=== PATIENT | female | born 1935 | race Caucasian/White ===

== ENCOUNTER 2016-07-01 14:39 | Emergency (ER) | payer OTHER ==
[~2016-07-01] VITALS: Ht 162.6 cm; Wt 68.5 kg
[~2016-07-01 14:39] MED LIST: CLONAZEPAM0.5 MG PO; CRESTOR40 MG PO; DORZOLAMIDE-TIM10 ML BOTH EYES; DULCOLAX5 MG PO; LATANOPROST2.5 ML BOTH EYES; LOSARTAN POTASS25 MG PO; PREDNISONE10 MG PO; TRAMADOL HCL50 MG PO
[2016-07-01 15:50] VITALS: BP 166/108
== END 2016-07-01 15:51 | disposition home or self-care (01) ==
LOC: EME 14:39
DX: S71.111D Laceration without foreign body, right thigh, subsequent encounter (principal); L08.9 Local infection of the skin and subcutaneous tissue, unspecified; W06.XXXD Fall from bed, subsequent encounter; Y92.003 Bedroom of unspecified non-institutional (private) residence as the place of occurrence of the external cause; I10 Essential (primary) hypertension; Z79.52 Long term (current) use of systemic steroids
CPT/HCPCS: 99281; 99284

== ENCOUNTER 2017-02-23 10:10 | Emergency (ER) | payer OTHER ==
[~2017-02-23] VITALS: Ht 162.6 cm; Wt 70.4 kg
[2017-02-23 10:13] VITALS: BP 156/115
== END 2017-02-23 11:12 | disposition home or self-care (01) ==
LOC: EME 10:10
PROC: 3E0234Z Introduction of Serum, Toxoid and Vaccine into Muscle, Percutaneous Approach (ICD-10-PCS; principal; 2017-02-23)
DX: S91.011A Laceration without foreign body, right ankle, initial encounter (principal); W22.8XXA Striking against or struck by other objects, initial encounter; Z23 Encounter for immunization; I10 Essential (primary) hypertension; E78.5 Hyperlipidemia, unspecified; Z79.52 Long term (current) use of systemic steroids
CPT/HCPCS: 99281; 99284

== ENCOUNTER 2017-03-03 16:20 | Emergency (ER) | payer OTHER ==
[~2017-03-03] VITALS: Ht 162.6 cm; Wt 70.8 kg
[2017-03-03 17:20] VITALS: BP 152/99
== END 2017-03-03 17:21 | disposition home or self-care (01) ==
LOC: EME 16:20
DX: S81.811D Laceration without foreign body, right lower leg, subsequent encounter (principal); Z48.00 Encounter for change or removal of nonsurgical wound dressing; I10 Essential (primary) hypertension; Z88.0 Allergy status to penicillin; Z88.8 Allergy status to other drugs, medicaments and biological substances
CPT/HCPCS: 99281; 99284

== ENCOUNTER 2017-03-20 00:21 | Inpatient (IN) | payer OTHER ==
[~2017-03-20] VITALS: Ht 162.6 cm; Wt 86.8 kg
[2017-03-20 00:53] LABS: BASOPHIL COUNT 0.1 K/uL (0-0.1); EOSINOPHIL (%) 0.9 % (0-5); EOSINOPHIL COUNT 0.1 K/uL (0-0.3); HEMATOCRIT 45.1 % (36.0-46.0); IMMATURE GRANULOCYTE (%) 3.1 % (0.0-0.7); IMMATURE GRANULOCYTE COUNT 0.3 K/uL; INSTRUMENT ABS NEUTROPHIL CT 5.8 K/uL; LYMPHOCYTE COUNT 1.3 K/uL (1.0-2.8); MCH 29.9 PG (29.0-34.0); MCHC 32.4 G/DL (30.0-36.0); MCV 92.4 FL (83-99); MEAN PLAT.VOLUME 9.5 uM^3 (9.5-12.4); MONOCYTE COUNT 0.5 K/uL (0-0.8); NEUTROPHIL (%) 73.1 % (45-76); NEUTROPHIL COUNT 5.8 K/uL (1.8-6.4); PLATELET COUNT 161 K/uL (156-360); RBC DIS.WIDTH-CV 14.3 % (11.8-14.6); RBC DIS.WIDTH-SD 48.4 % (39-53); RED BLOOD COUNT 4.88 M/uL (3.80-5.20)
[2017-03-20 01:02] LABS: INTER. NORMALIZED RATIO 0.9; PROTHROMBIN TIME 10.1 SEC (10.2-12.9)
[2017-03-20 01:10] LABS: CHLORIDE 106 mEq/L (99-109); SODIUM 141 mEq/L (136-147)
[2017-03-20 01:11] LABS: GLUCOSE 98 mg/dL (70-99)
[2017-03-20 01:13] LABS: ANION GAP 12 MEQ/L (2-14)
[2017-03-20 01:15] LABS: GFR ESTIMATE (CALCULATED) 38 mL/min/
[2017-03-20 01:16] LABS: UREA NITROGEN (BUN) 27 mg/dL (9-23)
[2017-03-20 03:15] LABS: ADD MIUA? YES; BILIRUBIN NEGATIVE; BLOOD SMALL; COLOR YELLOW ((YELLOW)); GLUCOSE (STRIP) NEGATIVE; KETONES NEGATIVE; LEUKOCYTES LARGE; NITRITE NEGATIVE; PROTEIN (STRIP) 30; SPECIFIC GRAVITY 1.013 (1.000-1.030); UROBILINOGEN 0.2 MG/DL (0.2-1.0)
[2017-03-20 03:49] LABS: BACTERIA 1+ /HPF; EPITHELIAL CELLS RARE /HPF; MUCUS TRACE /LPF; RED BLOOD CELLS 15-20 /HPF (0-5); UCUL ADDED? YES; WHITE BLOOD CELLS TNTC /HPF (0-5)
[2017-03-20 05:48] LABS: HEMATOCRIT 41.5 % (36.0-46.0); MCH 29.9 PG (29.0-34.0); MCV 93.3 FL (83-99); MEAN PLAT.VOLUME 9.3 uM^3 (9.5-12.4); PLATELET COUNT 128 K/uL (156-360); RBC DIS.WIDTH-CV 14.3 % (11.8-14.6); RBC DIS.WIDTH-SD 48.9 % (39-53); RED BLOOD COUNT 4.45 M/uL (3.80-5.20); WHITE BLOOD COUNT 11.1 K/uL (4.1-10.2)
[2017-03-20 07:45] VITALS: BP 154/109
[2017-03-20] MEDS ORDERED: DOXAZOSIN MESYLA2 MG PO (08:54)
[2017-03-20] MEDS ORDERED: EX-LAX15 M1 PO (08:55)
[2017-03-20] MEDS ORDERED: PREVIDENT 5000100 ML DT (08:55)
[2017-03-20] MEDS ORDERED: RANITIDINE HCL300 MG PO (08:56)
[2017-03-20 10:30] VITALS: BP 161/92
[2017-03-20 16:40] VITALS: BP 161/79
[2017-03-20 16:50] VITALS: BP 161/79
[2017-03-20 19:28] VITALS: BP 110/57
[2017-03-20 23:47] VITALS: BP 117/58
[2017-03-21 04:11] VITALS: BP 183/76
[2017-03-21 07:05] VITALS: BP 148/68
[2017-03-21 07:50] LABS: EOSINOPHIL (%) 1.5 % (0-5); EOSINOPHIL COUNT 0.2 K/uL (0-0.3); HEMATOCRIT 35.4 % (36.0-46.0); IMMATURE GRANULOCYTE (%) 0.8 % (0.0-0.7); IMMATURE GRANULOCYTE COUNT 0.1 K/uL; INSTRUMENT ABS NEUTROPHIL CT 9.3 K/uL; LYMPHOCYTE COUNT 0.5 K/uL (1.0-2.8); MCH 29.5 PG (29.0-34.0); MCHC 32.2 G/DL (30.0-36.0); MCV 91.7 FL (83-99); MEAN PLAT.VOLUME 9.2 uM^3 (9.5-12.4); MONOCYTE (%) 5.5 % (3-12); MONOCYTE COUNT 0.6 K/uL (0-0.8); NEUTROPHIL (%) 87.5 % (45-76); NEUTROPHIL COUNT 9.3 K/uL (1.8-6.4); PLATELET COUNT 110 K/uL (156-360); RBC DIS.WIDTH-CV 14.4 % (11.8-14.6); RBC DIS.WIDTH-SD 48.7 % (39-53); RED BLOOD COUNT 3.86 M/uL (3.80-5.20); WHITE BLOOD COUNT 10.6 K/uL (4.1-10.2)
[2017-03-21 08:14] LABS: ALKALINE PHOSPHATASE 50 IU/L (3-129); ANION GAP 8 MEQ/L (2-14); CHLORIDE 104 MEQ/L (99-109); GFR ESTIMATE (CALCULATED) 46 mL/min/; GLUCOSE 112 mg/dL (70-99); POTASSIUM 3.9 MEQ/L (3.7-5.4); SAMPLE HEMOLYSIS CHECK 0; SAMPLE ICTERIC CHECK 0; SAMPLE LIPEMIA CHECK 0; TOTAL BILIRUBIN 1.1 MG/DL (0.0-1.0); UREA NITROGEN (BUN) 18 mg/dL (9-23)
[2017-03-21 08:15] LABS: SODIUM 133 MEQ/L (136-147)
[2017-03-21 11:47] VITALS: BP 120/58
[2017-03-21 15:48] VITALS: BP 110/81
[2017-03-21 19:43] VITALS: BP 143/66
[2017-03-22] VITALS (7 sets, daily range): BP systolic 111–160; BP diastolic 58–93
[2017-03-22 06:45] LABS: EOSINOPHIL (%) 1.3 % (0-5); EOSINOPHIL COUNT 0.1 K/uL (0-0.3); HEMATOCRIT 30.7 % (36.0-46.0); IMMATURE GRANULOCYTE (%) 1.1 % (0.0-0.7); IMMATURE GRANULOCYTE COUNT 0.1 K/uL; INSTRUMENT ABS NEUTROPHIL CT 8.1 K/uL; LYMPHOCYTE COUNT 0.4 K/uL (1.0-2.8); MCH 30.1 PG (29.0-34.0); MCHC 32.2 G/DL (30.0-36.0); MCV 93.3 FL (83-99); MEAN PLAT.VOLUME 9.6 uM^3 (9.5-12.4); MONOCYTE (%) 6.6 % (3-12); MONOCYTE COUNT 0.6 K/uL (0-0.8); NEUTROPHIL (%) 86.2 % (45-76); NEUTROPHIL COUNT 8.1 K/uL (1.8-6.4); PLATELET COUNT 92 K/uL (156-360); RBC DIS.WIDTH-CV 14.6 % (11.8-14.6); RBC DIS.WIDTH-SD 50.3 % (39-53); RED BLOOD COUNT 3.29 M/uL (3.80-5.20); WHITE BLOOD COUNT 9.3 K/uL (4.1-10.2)
[2017-03-22 07:11] LABS: ANION GAP 7 MEQ/L (2-14); CHLORIDE 108 MEQ/L (99-109); GFR ESTIMATE (CALCULATED) 46 mL/min/; GLUCOSE 108 mg/dL (70-99); SAMPLE HEMOLYSIS CHECK 0; SAMPLE ICTERIC CHECK 0; SAMPLE LIPEMIA CHECK 0; SODIUM 138 MEQ/L (136-147); UREA NITROGEN (BUN) 18 mg/dL (9-23)
[2017-03-23 03:58] VITALS: BP 138/65
[2017-03-23 06:18] LABS: EOSINOPHIL (%) 1.9 % (0-5); EOSINOPHIL COUNT 0.2 K/uL (0-0.3); HEMATOCRIT 28.5 % (36.0-46.0); IMMATURE GRANULOCYTE (%) 1.2 % (0.0-0.7); IMMATURE GRANULOCYTE COUNT 0.1 K/uL; INSTRUMENT ABS NEUTROPHIL CT 6.9 K/uL; LYMPHOCYTE COUNT 0.5 K/uL (1.0-2.8); MCH 30.3 PG (29.0-34.0); MCHC 32.6 G/DL (30.0-36.0); MCV 92.8 FL (83-99); MONOCYTE (%) 7.7 % (3-12); MONOCYTE COUNT 0.6 K/uL (0-0.8); NEUTROPHIL (%) 82.8 % (45-76); NEUTROPHIL COUNT 6.9 K/uL (1.8-6.4); PLATELET COUNT 99 K/uL (156-360); RBC DIS.WIDTH-CV 14.6 % (11.8-14.6); RBC DIS.WIDTH-SD 50.1 % (39-53); RED BLOOD COUNT 3.07 M/uL (3.80-5.20); WHITE BLOOD COUNT 8.3 K/uL (4.1-10.2)
[2017-03-23 06:41] LABS: ANION GAP 6 MEQ/L (2-14); CHLORIDE 108 MEQ/L (99-109); GFR ESTIMATE (CALCULATED) 46 mL/min/; POTASSIUM 3.9 MEQ/L (3.7-5.4); SAMPLE HEMOLYSIS CHECK 0; SAMPLE ICTERIC CHECK 0; SAMPLE LIPEMIA CHECK 0; SODIUM 137 MEQ/L (136-147); UREA NITROGEN (BUN) 19 mg/dL (9-23)
[2017-03-23 06:43] LABS: GLUCOSE 74 mg/dL (70-99)
[2017-03-23 07:15] VITALS: BP 150/70
[2017-03-23 11:20] VITALS: BP 132/59
[2017-03-23] MEDS ORDERED: CIPROFLOXACIN500 M1 PO (13:01)
[2017-03-23] MEDS ORDERED: NORVASC5 MG PO (13:03)
[2017-03-23] MEDS ORDERED: ASPIRIN EC325 MG PO (13:04)
[2017-03-23] MEDS ORDERED: Tylenol Extra Streng PO (13:09)
[2017-03-23] MEDS ORDERED: HYDROCODON-ACE1 EAC7 PO (13:09)
[2017-03-23] MEDS ORDERED: CLONAZEPAM0.5 MG PO (13:09)
== END 2017-03-23 15:32 | DRG 469 ==
LOC: EME 00:21 → 2SOUTH 04:06 → 3EAST 04:06 → EDOF 04:06 → ENRESERV 04:09 → 2SOUTH 13:01 → ENRESERV 13:45 → 3EAST 16:16
PROVIDERS: Emergency Medicine; Internal Medicine; Physician Assistant
PROC: 0SRS039 Replacement of Left Hip Joint, Femoral Surface with Ceramic Synthetic Substitute, Cemented, Open Approach (ICD-10-PCS; principal; 2017-03-20)
DX: S72.002A Fracture of unspecified part of neck of left femur, initial encounter for closed fracture (principal); J95.821 Acute postprocedural respiratory failure; I10 Essential (primary) hypertension; S10.93XA Contusion of unspecified part of neck, initial encounter; S40.012A Contusion of left shoulder, initial encounter; J98.11 Atelectasis; N39.0 Urinary tract infection, site not specified; E78.5 Hyperlipidemia, unspecified; F41.9 Anxiety disorder, unspecified; M31.6 Other giant cell arteritis; N28.9 Disorder of kidney and ureter, unspecified; W01.0XXA Fall on same level from slipping, tripping and stumbling without subsequent striking against object, initial encounter; Y92.009 Unspecified place in unspecified non-institutional (private) residence as the place of occurrence of the external cause; K21.9 Gastro-esophageal reflux disease without esophagitis; G51.0 Bell's palsy; H40.9 Unspecified glaucoma; B96.5 Pseudomonas (aeruginosa) (mallei) (pseudomallei) as the cause of diseases classified elsewhere; Z87.891 Personal history of nicotine dependence; Z79.899 Other long term (current) drug therapy; Z80.41 Family history of malignant neoplasm of ovary
CPT/HCPCS: 70450; 71010; 72125; 73020; 73030; 73502; 80048; 80053; 81003; 85014; 85018; 85025; 85027; 85610; 85730; 86850; 86900; 86901; 87077; 87086 GA; 87186; 93005; 94799; 99281; 99285; J0330; J0360; J1644; J2250; J2270; J2405; J3010; J3370; J7030; J7042; J7512

== ENCOUNTER 2017-08-04 19:42 | Emergency (ER) | payer OTHER ==
[~2017-08-04] VITALS: Ht 160 cm; Wt 68.4 kg
[~2017-08-04 19:42] MED LIST changes: +ASPIRIN EC325 MG PO; +CIPROFLOXACIN500 M1 PO; +DOXAZOSIN MESYLA2 MG PO; +EX-LAX15 M1 PO; +HYDROCODON-ACE1 EAC7 PO; +NORVASC5 MG PO; +PREVIDENT 5000100 ML DT; +RANITIDINE HCL300 MG PO; +Tylenol Extra Streng PO
[2017-08-04 22:03] VITALS: BP 146/72
== END 2017-08-04 22:04 | disposition home or self-care (01) ==
LOC: EME 19:42
DX: S41.111A Laceration without foreign body of right upper arm, initial encounter (principal); S61.216A Laceration without foreign body of right little finger without damage to nail, initial encounter; S63.501A Unspecified sprain of right wrist, initial encounter; S80.12XA Contusion of left lower leg, initial encounter; S80.11XA Contusion of right lower leg, initial encounter; W01.0XXA Fall on same level from slipping, tripping and stumbling without subsequent striking against object, initial encounter; Y93.G1 Activity, food preparation and clean up; G51.0 Bell's palsy; Z96.642 Presence of left artificial hip joint; Z87.442 Personal history of urinary calculi; Z85.9 Personal history of malignant neoplasm, unspecified; Z88.0 Allergy status to penicillin; Z91.041 Radiographic dye allergy status; Z88.8 Allergy status to other drugs, medicaments and biological substances
CPT/HCPCS: 72170; 73110; 73564; 99281; 99284

== ENCOUNTER 2017-08-17 13:16 | Emergency (ER) | payer OTHER ==
[~2017-08-17] VITALS: Ht 160 cm; Wt 68.6 kg
[2017-08-17 14:20] VITALS: BP 131/92
== END 2017-08-17 14:00 | disposition home or self-care (01) ==
LOC: EME 13:16
DX: T22.031D Burn of unspecified degree of right upper arm, subsequent encounter (principal); Z88.0 Allergy status to penicillin; Z91.041 Radiographic dye allergy status; Z96.649 Presence of unspecified artificial hip joint
CPT/HCPCS: 99281; 99284

== ENCOUNTER 2017-09-06 16:28 | Emergency (ER) | payer OTHER ==
[~2017-09-06] VITALS: Ht 160 cm; Wt 68.2 kg
[2017-09-06 18:03] VITALS: BP 143/67
== END 2017-09-06 18:03 | disposition home or self-care (01) ==
LOC: EME 16:28
DX: S51.812A Laceration without foreign body of left forearm, initial encounter (principal); W18.30XA Fall on same level, unspecified, initial encounter; Y93.01 Activity, walking, marching and hiking; Y92.512 Supermarket, store or market as the place of occurrence of the external cause; Z87.442 Personal history of urinary calculi; Z85.9 Personal history of malignant neoplasm, unspecified; Z96.649 Presence of unspecified artificial hip joint; Z88.0 Allergy status to penicillin; Z91.041 Radiographic dye allergy status; Z88.8 Allergy status to other drugs, medicaments and biological substances
CPT/HCPCS: 99281; 99284

== ENCOUNTER 2017-09-10 23:20 | Observation (INO) | payer OTHER ==
[~2017-09-10] VITALS: Ht 160 cm; Wt 71.2 kg
[2017-09-11 00:05] LABS: HEMATOCRIT 39.4 % (36.0-46.0); HEMOGLOBIN 12.8 G/DL (11.9-15.5); MCHC 32.5 G/DL (30.0-36.0); MCV 89.3 FL (83-99); PLATELET COUNT 166 K/uL (156-360); RBC DIS.WIDTH-CV 15.9 % (11.8-14.6); RBC DIS.WIDTH-SD 52.6 % (39-53); RED BLOOD COUNT 4.41 M/uL (3.80-5.20); WHITE BLOOD COUNT 7.4 K/uL (4.1-10.2)
[2017-09-11 00:16] LABS: ALBUMIN 3.5 g/dL (3.2-4.8); CHLORIDE 110 mEq/L (99-109); POTASSIUM 4.4 mEq/L (3.7-5.4); SODIUM 143 mEq/L (136-147)
[2017-09-11 00:18] LABS: GLUCOSE 83 mg/dL (70-99); TOTAL PROTEIN 5.4 g/dL (6.4-8.3)
[2017-09-11 00:20] LABS: TOTAL BILIRUBIN 0.4 mg/dL (0.0-1.0)
[2017-09-11 00:22] LABS: ALKALINE PHOSPHATASE 62 IU/L (3-129); CREATININE 1.5 mg/dL (0.6-1.3); GFR ESTIMATE (CALCULATED) 35 mL/min/
[2017-09-11 00:23] LABS: AST (GOT) 16 IU/L (2-34); UREA NITROGEN (BUN) 26 mg/dL (9-23)
[2017-09-11 00:25] LABS: ALT (GPT) 12 IU/L (3-49); LIPASE 80 U/L (1.0-51.0)
[2017-09-11 00:28] LABS: TROP-I INTERPRETATION NEGATIVE; TROPONIN-I < 0.01 ng/mL (0.0-0.30)
[2017-09-11 01:05] LABS: APPEARANCE CLOUDY ((CLEAR)); BILIRUBIN NEGATIVE; BLOOD SMALL; COLOR YELLOW ((YELLOW)); GLUCOSE (STRIP) NEGATIVE; KETONES NEGATIVE; LEUKOCYTES LARGE; NITRITE NEGATIVE; PROTEIN (STRIP) 30; SPECIFIC GRAVITY 1.023 (1.000-1.030); UROBILINOGEN 0.2 MG/DL (0.2-1.0)
[2017-09-11 02:23] LABS: RED BLOOD CELLS RARE /HPF (0-5)
[2017-09-11 02:24] LABS: WHITE BLOOD CELLS TNTC /HPF (0-5)
[2017-09-11 02:31] LABS: BACTERIA 1+ /HPF; EPITHELIAL CELLS 1+ /HPF; MUCUS NONE SEEN /LPF; UCUL ADDED? YES
[2017-09-11 04:42] VITALS: BP 183/90
[2017-09-11 06:00] VITALS: BP 109/53
[2017-09-11 09:07] VITALS: BP 170/80
[2017-09-11 11:22] VITALS: BP 189/96
[2017-09-11 13:07] VITALS: BP 141/73
[2017-09-11] MEDS ORDERED: DORZOLAMIDE-TIM10 ML BOTH EYES (14:14)
[2017-09-11] MEDS ORDERED: ZANTAC300 MG PO (14:19)
[2017-09-11] MEDS ORDERED: CRESTOR40 MG PO (14:19)
[2017-09-11] MEDS ORDERED: TYLENOL EXTRA500 MG PO (14:21)
[2017-09-11] MEDS ORDERED: APRESOLINE25 MG PO (14:58)
[2017-09-11 15:26] VITALS: BP 112/60
== END 2017-09-11 16:48 | disposition home or self-care (01) ==
LOC: EME 23:20 → EDOF 09-11 03:17 → 5WEST 09-11 03:17 → ENRESERV 09-11 03:22 → 5WEST 09-11 04:24
PROVIDERS: Emergency Medicine
DX: I16.0 Hypertensive urgency (principal); I10 Essential (primary) hypertension; N39.0 Urinary tract infection, site not specified; M31.6 Other giant cell arteritis; Z79.52 Long term (current) use of systemic steroids; M25.552 Pain in left hip; M79.602 Pain in left arm; S41.111A Laceration without foreign body of right upper arm, initial encounter; S60.512A Abrasion of left hand, initial encounter; S60.812A Abrasion of left wrist, initial encounter; S50.312A Abrasion of left elbow, initial encounter; F41.9 Anxiety disorder, unspecified; G51.0 Bell's palsy; K21.9 Gastro-esophageal reflux disease without esophagitis; E78.5 Hyperlipidemia, unspecified; Z85.828 Personal history of other malignant neoplasm of skin; Z80.41 Family history of malignant neoplasm of ovary; Z82.49 Family history of ischemic heart disease and other diseases of the circulatory system; M25.473 Effusion, unspecified ankle; Z96.642 Presence of left artificial hip joint; Z88.0 Allergy status to penicillin; Z88.8 Allergy status to other drugs, medicaments and biological substances
CPT/HCPCS: 70450; 71045; 80053; 81003; 83690; 84484; 85027; 87077; 87086 GA; 87186; 93005; 99281; 99285; G0378; G8978 GP CI; G8979 GP CH; G8980 GP CI; J0360; J1644; J7030; J7512

== ENCOUNTER 2017-09-21 10:18 | Emergency (ER) | payer OTHER ==
[~2017-09-21] VITALS: Ht 160 cm; Wt 68.2 kg
[~2017-09-21 10:18] MED LIST changes: +APRESOLINE25 MG PO; +TYLENOL EXTRA500 MG PO; +ZANTAC300 MG PO
[2017-09-21 13:30] LABS: HEMATOCRIT 41.8 % (36.0-46.0); HEMOGLOBIN 13.5 G/DL (11.9-15.5); MCH 28.8 PG (29.0-34.0); MCHC 32.3 G/DL (30.0-36.0); MCV 89.3 FL (83-99); PLATELET COUNT 207 K/uL (156-360); RBC DIS.WIDTH-CV 16.6 % (11.8-14.6); RBC DIS.WIDTH-SD 54.4 % (39-53); RED BLOOD COUNT 4.68 M/uL (3.80-5.20); WHITE BLOOD COUNT 8.2 K/uL (4.1-10.2)
[2017-09-21 13:41] LABS: CHLORIDE 111 mEq/L (99-109); POTASSIUM 4.2 mEq/L (3.7-5.4); SODIUM 142 mEq/L (136-147)
[2017-09-21 13:43] LABS: GLUCOSE 81 mg/dL (70-99)
[2017-09-21 13:46] LABS: CREATININE 1.4 mg/dL (0.6-1.3); GFR ESTIMATE (CALCULATED) 38 mL/min/
[2017-09-21 13:47] LABS: UREA NITROGEN (BUN) 30 mg/dL (9-23)
[2017-09-21 13:54] LABS: TROP-I INTERPRETATION NEGATIVE; TROPONIN-I < 0.01 ng/mL (0.0-0.30)
[2017-09-21 14:08] VITALS: BP 157/88
== END 2017-09-21 14:08 | disposition home or self-care (01) ==
LOC: EME 10:18
PROVIDERS: Nurse Practitioner Family
DX: R20.0 Anesthesia of skin (principal); R60.0 Localized edema; T46.5X5A Adverse effect of other antihypertensive drugs, initial encounter; I10 Essential (primary) hypertension; Z88.0 Allergy status to penicillin; Z87.442 Personal history of urinary calculi; Z96.649 Presence of unspecified artificial hip joint
CPT/HCPCS: 80048; 84484; 85027; 99281; 99284